=== PATIENT | male | born 1930 | race Caucasian/White ===

== ENCOUNTER 2016-11-21 13:32 | Emergency (ER) | payer BC ==
[~2016-11-21] VITALS: Ht 190.5 cm; Wt 115.9 kg
[2016-11-21 13:57] VITALS: BP 132/81; TEMP 97.3
[2016-11-21] MEDS ORDERED: COUMADIN 5MG5 MG/TAB PO (15:51)
[2016-11-21] MEDS ORDERED: DIGITEK0.25 MG PO (15:51)
[2016-11-21] MEDS ORDERED: LOPRESSOR100 MG PO (15:52)
[2016-11-21] MEDS ORDERED: PROTONIX 40MG T40 MG PO (15:52)
[2016-11-21] MEDS ORDERED: PROZAC40 MG PO (15:52)
[2016-11-21] MEDS ORDERED: ALTACE 10MG TAB10 MG PO (15:52)
[2016-11-21] MEDS ORDERED: ZOCOR 10MG10 MG PO (15:53)
[2016-11-21 16:04] VITALS: PULSE 78
== END 2016-11-21 16:05 | disposition home or self-care (01) ==
LOC: COL.ER 13:32
DX: R21 Rash and other nonspecific skin eruption (principal); I10 Essential (primary) hypertension